=== PATIENT | male | born 1950 | race Caucasian/White ===

== ENCOUNTER → 2019-04-21 | Outpatient (CLI) | payer MEDICARE ==
[2019-04-21 16:49] LABS: African American GFR (CKD) >90 (>60 ml/min/1.73 sqM); Blood Urea Nitrogen 15 mg/dL (9-20)
--- NOTE | 2019-04-21 17:31 | CT ---
EXAMINATION TYPE: CT chest w con DATE OF EXAM: 04/21/2019 COMPARISON: None HISTORY: LL lobe atelectasis CT DLP: 588.50 mGycm Automated exposure control for dose reduction was used. CONTRAST: CT scan of the chest is performed with IV Contrast, patient injected with 100 mL of Isovue 300. FINDINGS: There is some patchy atelectasis at the lung bases. Heart size is normal. There are numerous enlarged mediastinal lymph nodes that measure up to 2 cm. There is an enlarged lymph node at the inferior lef t pulmonary hilum that measures 4.2 cm. There is 4.4 cm aneurysm of the ascending aorta. There is no evidence of dissection. There is no pleural effusion. There is 3 cm oval-shaped low-density focus pos terior right lobe of the liver that is probably a cyst. There is no adrenal mass. Thoracic spine is intact. There is no compression fracture. IMPRESSION: There is mediastinal and left bronchial adenopathy. Markedly enlarged left bronchial lym ph node. This could relate to lymphoma. Mild aneurysm of the ascending aorta. Mild atelectasis at both lung bases.
== END | disposition home or self-care (01) ==
LOC: RADCTMAIN 16:07
PROVIDERS: ATTEND Internal Medicine
DX: J98.11 Atelectasis (principal); R59.1 Generalized enlarged lymph nodes; I71.2 Thoracic aortic aneurysm, without rupture
CPT/HCPCS: 82565; 84520; 71260; 36415; Q9967

== ENCOUNTER 2019-04-29 12:08 | Inpatient (IN) | payer MEDICARE ==
[2019-04-29] MEDS ORDERED: SODIUM CHLORIDE 0.9% 1,000 ML IV STA (12:28)
[2019-04-29] MEDS ORDERED: NITROGLYCERIN SL TABS 0.4 MG TAB SUBLINGUAL PRN ×2 (12:28→13:56)
[2019-04-29] MEDS ORDERED: HEPARIN SODIUM,PORCINE 5,000 UNIT/ML 1 ML VIAL IV PRN (12:28)
[2019-04-29] MEDS ORDERED: HEPARIN SODIUM,PORCINE 5,000 UNIT/ML 1 ML VIAL IV ONE (12:28)
[2019-04-29] MEDS ORDERED: HEPARIN SOD,PORK IN 0.45% NACL 25,000 UNIT in 0.45% NACL 1 250ML.BAG IV SCH (12:30)
[2019-04-29] MEDS ORDERED: SODIUM CHLORIDE 0.9% 1,000 ML IV SCH ×2 (12:30→14:00)
[2019-04-29] MEDS ORDERED: ASPIRIN 81 MG PO STA (12:33)
[2019-04-29] MEDS ORDERED: fentaNYL (PF) 50 MCG/ML 2 ML AMP ONE (12:36)
[2019-04-29] MEDS ORDERED: VERAPAMIL 2.5 MG/ML 2 ML AMP ONE (12:36)
[2019-04-29] MEDS ORDERED: LIDOCAINE 1% INJ 10MG/ML (20 ML MDV) ONE (12:36)
--- NOTE | 2019-04-29 12:37 | ED ---
Chest Pain HPI - General Chief Complaint: Chest Pain Stated Complaint: Chest pain/cough Time Seen by Provider: 04/29/19 12:28 Source: patient, RN notes reviewed, old records reviewed Mode of arrival: wheelchair Limitations: no limitations - History of Present Illness Initial Comments: This is a 68-year-old male the ER for evaluation significant medical history. Patient has no recent change in medications recent change medical history episodic chest pain for a few days now significant worsening heaviness on his chest both sides left-sided right side. Patient also complaining of shortness of breath. He has no sharpness in his pain no pain is going to his back no feelings of syncope. No headaches. No neurological complaints. Patient has no significant history of heart disease, does not follow up with any significant family physician but has no history of high blood pressure high cholesterol diabetes MD Complaint: chest pain -: days(s) (But significantly worse over the last couple hours) Onset: during rest Pain Location: left chest, right chest Pain Radiation: none Severity: moderate Severity scale (1-10): 4 Quality: heaviness Consistency: constant Improves With: nothing Worsens With: nothing Anginal Symptoms: diaphoresis, dyspnea Other Symptoms: palpitations Treatments Prior to Arrival: none - Related Data Home Medications Medication Instructions Recorded Confirmed Aspirin EC [Ecotrin] 325 mg PO DAILY 04/29/19 04/29/19 Multivitamins, Thera [Multivitamin 1 tab PO DAILY 04/29/19 04/29/19 (formulary)] Allergies Allergy/AdvReac Type Severity Reaction Status Date / Time No Known Allergies Allergy Verified 04/29/19 13:16 Review of Systems ROS Statement: Those systems with pertinent positive or pertinent negative responses have been documented in the HPI. ROS Other: All systems not noted in ROS Statement are negative. EKG Findings - EKG Comments: EKG Findings:: EKG shows positive ST ST elevated [place], STEMI is inferior with ST elevation, she does have lateral reciprocal changes Past Medical History Past Medical History: No Reported History Past Surgical History: No Surgical Hx Reported Past Psychological History: No Psychological Hx Reported Smoking Status: Never smoker Past Alcohol Use History: None Reported Past Drug Use History: None Reported General Exam Limitations: no limitations General appearance: alert, in no apparent distress, anxious, in distress Head exam: Present: atraumatic, normocephalic, normal inspection Eye exam: Present: normal appearance, EOMI. Absent: scleral icterus, conjunctival injection, periorbital swelling ENT exam: Present: normal exam, mucous membranes moist Neck exam: Present: normal inspection. Absent: tenderness, meningismus, lymphadenopathy Respiratory exam: Present: normal lung sounds bilaterally. Absent: respiratory distress, wheezes, rales, rhonchi, stridor Cardiovascular Exam: Present: regular rate, normal rhythm, normal heart sounds. Absent: systolic murmur, diastolic murmur, rubs, gallop, clicks GI/Abdominal exam: Present: soft, normal bowel sounds. Absent: distended, tenderness, guarding, rebound, rigid Extremities exam: Present: normal inspection, full ROM, normal capillary refill. Absent: tenderness, pedal edema, joint swelling, calf tenderness Back exam: Present: normal inspection Neurological exam: Present: alert, oriented X3, CN II-XII intact Psychiatric exam: Present: normal affect, normal mood Skin exam: Present: warm, dry, intact, normal color. Absent: rash Course Vital Signs 04/29/19 04/29/19 12:29 12:35 Temperature 99.2 F Pulse Rate 72 68 Respiratory 20 16 Rate Blood Pressure 148/97 138/56 O2 Sat by Pulse 98 99 Oximetry - Reevaluation(s) Reevaluation #1: 04/29/19 12:34 Medical records reviewed Reevaluation #2: 04/29/19 12:34 Page on receive of EKG, Nondestructive Tester did see patient here in the ER - Consultations Consultation #1: Spoke with sound regarding admission, they're acceptable for admission spoke with Sound regarding admission Chest Pain MDM - MDM 68 male the ER for evaluation patient does say for evaluation of chest pain positive ST elevation AK. Patient be admitted for cardiac observation Critical Care Time Critical Care Time: Yes Total Critical Care Time: 31 Disposition Clinical Impression: ST elevation myocardial infarction (STEMI) Disposition: ADMITTED IP TO THIS HOSP Condition: Critical Is patient prescribed a controlled substance at d/c from ED?: No
[2019-04-29] MEDS ORDERED: IV FLUID CONTINUATION 900 ML IV ONE ×2 (12:45)
--- NOTE | 2019-04-29 12:45 | XR ---
EXAMINATION TYPE: XR chest 1V portable DATE OF EXAM: 04/29/2019 COMPARISON: CT dated 04/21/2019 HISTORY: Chest pain TECHNIQUE: Single frontal view of the chest is obtained. FINDINGS: Double density overlying the left ventricle is seen that relates to left peribronchial mas s or adenopathy on the prior CT. There is also mild prominence of the ascending thoracic aorta. There is no focal air space opacity, pleural effusion, or pneumothorax seen. The cardiac silhouette size is mildly enlarged. The osseous structures are intact. IMPRESSION: Retrocardiac double density relates to left peribronchial mass/adenopathy is seen on the CT dated 04/21/2019. Mild prominence of the ascending thoracic aorta relates to the known thoracic ao rtic aneurysm. No new acute pulmonary process.
[2019-04-29] MEDS ORDERED: fentaNYL (PF) 50 MCG/ML 2 ML AMP IV ONE (12:50)
[2019-04-29] MEDS ORDERED: LIDOCAINE 1% INJ 10MG/ML (20 ML MDV) SQ ONE (12:50)
[2019-04-29 12:51] LABS: Basophils # (A) 0.1 k/uL (0-0.2); Basophils % (A) 1 %; Eosinophils % (A) 0 %; HCT 45.6 % (39.0-53.0); HGB 15.1 gm/dL (13.0-17.5); Lymphocytes # (A) 0.5 k/uL (1.0-4.8); Lymphocytes % (A) 4 %; MCHC 33.2 g/dL (31.0-37.0); MCV 90.3 fL (80.0-100.0); Mean Platelet Volume 7.7; Monocytes # (A) 0.7 k/uL (0-1.0); Monocytes % (A) 6 %; Neutrophils # (A) 10.6 k/uL (1.3-7.7); Neutrophils % (A) 87 %; Platelet Count 242 k/uL (150-450); RBC 5.05 m/uL (4.30-5.90); RDW 14.7 % (11.5-15.5); WBC 12.1 k/uL (3.8-10.6)
[2019-04-29 12:54] LABS: ALT 49 U/L (21-72); AST 142 U/L (17-59); African American GFR (CKD) >90 (>60 ml/min/1.73 sqM); Albumin 4.1 g/dL (3.5-5.0); Alkaline Phosphatase 69 U/L (38-126); Anion Gap 11 mmol/L; Blood Urea Nitrogen 15 mg/dL (9-20); Calcium 9.9 mg/dL (8.4-10.2); Carbon Dioxide 24 mmol/L (22-30); Chloride 102 mmol/L (98-107); Glucose 176 mg/dL (74-99); Magnesium 2.1 mg/dL (1.6-2.3); Sodium 137 mmol/L (137-145); Total Bilirubin 1.2 mg/dL (0.2-1.3); Total Protein 7.9 g/dL (6.3-8.2)
[2019-04-29] MEDS ORDERED: VERAPAMIL SYRINGE (5 MG/10 ML) INTRAARTER ONE (12:54)
[2019-04-29] MEDS ORDERED: BIVALIRUDIN BOLUS 250 MG/50 ML IV ONE (12:57)
--- NOTE | 2019-04-29 12:57 | P.CRDCN ---
History of Present Illness Consult date: 04/29/19 Reason for Consult (text): Inferior STEMI Chief complaint: Chest pain History of present illness: This is a 68-year-old gentleman with no prior documented history of hypertension, no diabetes, no hyperlipidemia, he is a nonsmoker, no family history of premature coronary artery disease, presented to the emergency room with symptoms of midsternal chest pressure and heaviness with associated shortness of breath. According to the patient, he's been having a heartburn sensation in the center of his chest which has been occurring off and on for the past one and a half to 2 weeks. He's been getting intermittent shortness of breath with this. He states that he did see Dr. Dumas of the lung doctor as an outpatient, had a chest x-ray performed which showed evidence of some nodules and he was to be scheduled for a PET scan down the road. This morning patient developed significant heaviness in the chest and found it very difficult to breathe which is why he came into the ER for further evaluation and treatment. His initial EKG in the emergency room showed a normal sinus rhythm with inferior ST elevation and mild ST elevation noted in the lateral leads. Chest x-ray was performed in the emergency room, resolved is yet pending. Blood pressure in the ER 148/90, heart rate in the 70s, 98% on 2 L of oxygen, temperature 99.2. No lab data yet available. At the time of my examination in the emergency room, patient was rating his chest pressure at about a 2, he did complain of still feeling quite short of breath, denied any dizziness or lightheadedness. The patient was advised to go emergently to the cardiac catheterization lab to undergo cardiac catheterization, the risks and the benefits were explained to the patient in detail and he was willing to proceed. This will be performed by Dr. Cantor. Past Medical History Past Medical History: No Reported History Past Surgical History: No Surgical Hx Reported Past Psychological History: No Psychological Hx Reported Smoking Status: Never smoker Past Alcohol Use History: None Reported Past Drug Use History: None Reported Medications and Allergies Allergies Allergy/AdvReac Type Severity Reaction Status Date / Time No Known Allergies Allergy Verified 04/29/19 12:32 Physical Exam Vitals: Vital Signs Temp Pulse Resp BP Pulse Ox 04/29/19 12:29 99.2 F 72 20 148/97 98 Intake and Output 04/28/19 04/29/19 04/29/19 22:59 06:59 14:59 Other: Weight 97.069 kg PHYSICAL EXAMINATION: GENERAL: 78-year-old gentleman in no acute distress at the time of my examination HEENT: Head is atraumatic, normocephalic. Pupils equal, round. Sclera anicteric. Conjunctiva are clear. Mucous membranes of the mouth are moist. Neck is supple. There is elevated jugular venous pressure. No carotid bruit is heard. HEART EXAMINATION: Heart S1, S2 normal. No murmur or gallop heard. CHEST EXAMINATION: Lungs are clear to auscultation and precussion. No chest wall tenderness is noted on palpation or with deep breathing. ABDOMEN: Soft, nontender. Bowel sounds are heard. No organomegaly noted. EXTREMITIES: 2+ peripheral pulses with no evidence of peripheral edema and no calf tenderness noted. NEUROLOGIC patient is awake, alert and oriented 3. . Results Current Medications Generic Name Dose Route Start Last Admin Trade Name Freq PRN Reason Stop Dose Admin Aspirin 325 mg 04/30/19 09:00 Aspirin PO DAILY [facility] Atorvastatin Calcium 80 mg 04/30/19 09:00 Lipitor PO DAILY VANDANA Heparin Sodium (Porcine) 0 unit 04/29/19 12:28 Heparin IV Q6HR PRN Low PTT Protocol Sodium Chloride 1,000 mls @ 100 mls/hr 04/29/19 12:28 04/29/19 12:35 Saline 0.9% IV 04/29/19 22:27 100 mls/hr .Q10H STA Administration Sodium Chloride 1,000 mls @ 20 mls/hr 04/29/19 12:30 04/29/19 12:35 Saline 0.9% IV 20 mls/hr .Q24H VANDANA Administration Heparin Sodium/Sodium Chloride 250 mls @ 9.994 mls/hr 04/29/19 12:30 25,000 unit/ Sodium Chloride IV .Q24H VANDANA Protocol 4.67 UNITS/KG/HR Metoprolol Tartrate 25 mg 04/29/19 21:00 Lopressor PO BID VANDANA Nitroglycerin 0.4 mg 04/29/19 12:28 Nitrostat SUBLINGUAL Q5M PRN Chest Pain Intake and Output 04/28/19 04/29/19 04/29/19 22:59 06:59 14:59 Other: Weight 97.069 kg Patient Weight 04/30/19 06:59 Weight 97.069 kg EKG Interpretations (text) EKG shows a normal sinus rhythm with ST elevation in the inferior leads and mild elevation noted in the lateral leads Assessment and Plan Plan: Assessment and plan #[address] elevation myocardial infarction #2 pulmonary nodules for which the patient has seen a emblem drawer in as an outpatient and was scheduled to have a PET scan down the road. #3 cardiac risk factors negative for hypertension, no diabetes, no hyperlipidemia, nonsmoker, no family history of premature coronary artery disease Plan Patient was given a full aspirin as well as Lipitor 80, 4000 of heparin, taken emergently to the cardiac catheterization lab. The risks and benefits of the procedure were explained to the patient in detail and he was willing to proceed. Further recommendations to follow. DNP note has been reviewed, I agree with a documented findings and plan of care. Patient was seen and examined.
[2019-04-29 12:58] LABS: INR 1.1 (<1.2); Prothrombin Time 11.3 sec (9.0-12.0)
[2019-04-29] MEDS ORDERED: BIVALIRUDIN 250 MG in SODIUM CHLORIDE 0.9% 50 ML IV ONE (12:58)
[2019-04-29] MEDS ORDERED: TICAGRELOR 90 MG TAB ONE (12:58)
[2019-04-29] MEDS ORDERED: TICAGRELOR 90 MG TAB PO ONE (13:02)
[2019-04-29] MEDS ORDERED: NITROGLYCERIN 1000MCG/10ML SYRINGE INTRACORON ONE (13:15)
[2019-04-29] MEDS ORDERED: IOPAMIDOL-370 125ML BTL INJ ONE ×2 (13:24→13:46)
[2019-04-29] MEDS ORDERED: MAG HYDROX/AL HYDROX/SIMETH 30 ML CUP PO PRN (13:56)
[2019-04-29] MEDS ORDERED: ATROPINE SULFATE 0.1 MG/ML 10ML SYRINGE IV PRN (13:56)
[2019-04-29] MEDS ORDERED: ZOLPIDEM 5 MG TAB PO PRN (13:56)
[2019-04-29] MEDS ORDERED: RX INFO: IV CONTRAST WAS GIVEN 1 EACH MISC MISCELLANE PRN (13:56)
--- NOTE | 2019-04-29 14:27 | CC ---
CARDIAC CATHETERIZATION REPORT Mr. Hines is a 68-year-old male with no prior documented coronary artery disease who has been complaining of chest discomfort on and off for the last week. Today, the pain was worse. He came into the emergency room, was found to have ST elevation inferiorly. In view of that, recommendation regarding cardiac catheterization. The procedures, risks and complication were discussed with the patient who is in full understanding and agreement. PROCEDURE: Patient was brought to cath laboratory technician after receiving sedation and achieving moderate conscious sedated state using Benadryl and fentanyl, using Xylocaine anesthesia and Seldinger technique, a 6-Montenegrin sheath was introduced in the right radial artery. Right coronary angiography was performed using a 6-Montenegrin FR4 guiding catheter after performing angioplasty and stenting of the RCA. A 5-Montenegrin 3.5 bend left Jason catheter were used to cannulate the left main and images of the left coronary system was obtained. Following that, a 5-Montenegrin tight pigtail catheter was introduced into the left ventricle and pressures were calculated. Following that, catheter and sheath were removed. Hemostasis was obtained with deployment of a TR band. There was no immediate complication. Patient is returned to his room in stable condition. Of note, the patient received intra-arterial verapamil. 1. LEFT MAIN: This is a large-sized vessel trifurcating into left circumflex, left anterior descending artery. Left main coronary artery distally has a 30%-40% stenosis at the bifurcation. The distal vessel has no high-grade stenosis. 2. LEFT ANTERIOR DESCENDING ARTERY: This is a large-sized vessel, tapers down to distal third, giving rise to a large diagonal branch. The left anterior descending artery has intimal disease of 20% to 30% throughout its course without any evidence of high-grade stenosis. 3. RAMUS INTERMEDIUS: This is a small size vessel that has no evidence of high-grade stenosis. 4. LEFT CIRCUMFLEX: This is a nondominant vessel, giving rise to 2 small obtuse marginal branches. The left circumflex has mild intimal disease of 20% to 30% without any evidence of high-grade stenosis. 5. RIGHT CORONARY ARTERY: This vessel is totally occluded proximally with no antegrade flow. 6. LEFT VENTRICULOGRAM: Left ventriculogram was not performed. HEMODYNAMICS: There was no gradient across the aortic valve. The left ventricular end-diastolic pressure was 14-16 mmHg. CONCLUSION: 1. Acutely occluded proximal right coronary artery. 2. Mild to moderate disease in the distal left main as well as LAD and left circumflex. RECOMMENDATION: In view of finding anatomy, I recommend proceeding with angioplasty and stenting of the right coronary artery. The procedures, risks and complications were discussed with the patient who is in full understanding and agreement. MMOSWALDOL / IJN: [id number] /
--- NOTE | 2019-04-29 14:38 | PTCA ---
PERCUTANEOUSTRANS CORORONARY ANGIOGRAPHY Mr. Hines is a 68-year-old male with no prior documented coronary artery disease who presented with an acute inferior myocardial infarction, underwent cardiac catheterization, was found to have an acutely occluded proximal right coronary artery. In view of that, recommendation regarding angioplasty and stenting. The procedures, risks and complication were discussed with the patient who is in full understanding and agreement. PROCEDURE: Using the 6-Namibian FR4 guiding catheter and after cannulating the right coronary ostium, attempt to advance a 0.014 balanced medium weight J-wire was advanced across the total occlusion were unsuccessful. Subsequently, a corsair catheter was advanced and attempt to advance the BMW wire were unsuccessful. That wire was removed and a Whisper J-wire was advanced and positioned distally. Following that, the corsair catheter was removed and attempt to advance a 2.5 x 12 mm Trek balloon were unsuccessful. That balloon was removed and a 1.5 x 8 mm Trek balloon was advanced and multiple inflations at a maximum of 10 atmospheres were done. Following that the balloon was removed and a 2.5 x 12 mm Trek balloon was readvanced and multiple inflations maximum of 10 atmospheres were done. Following that, the balloon was removed and a 4.0 x 18 mm Xience [place] stent was advanced, deployed and post dilated at 16 atmospheres. Following that, the balloon was removed and a 5.0 x 15 mm Trek balloon was advanced and one inflation at 10 atmospheres was done. After the last inflation, after appropriate wait, the balloon and the guidewire were withdrawn back in the guiding catheter. The images were obtained and repeated. Those images reveal stable successful stenting. Following the catheter, the wire and the balloon were removed. Angiography of the left coronary system as well as left ventricular end- diastolic pressure were calculated. Following that, catheter and sheaths were removed. Hemostasis was obtained with deployment of a TR band. There was no immediate complication. Patient is returned to his room in stable condition. Of note, the patient was pain-free at the end the procedure. He received Angiomax per protocol as well as oral loading dose of Brilinta. RESULTS: Successful stenting of a large proximal right coronary artery with reduction of stenosis from 100% to less than 5%. The patient has intimal disease involving the mid and distal right coronary artery as well as the right PDA. RECOMMENDATION: Patient will be continued on aspirin, Brilinta, beta blockers and statin. The importance of dual antiplatelet treatment were discussed with the patient and his family who are in full understanding and agreement. Duration of the procedure is 54 minutes. MMOSWALDOL / IJN: [id number] /
--- NOTE | 2019-04-29 16:29 | P.HPIM ---
History of Present Illness H&P Date: 04/29/19 The patient is a 68 yo M with no significant PMH, and non-smoker presented to the ED for on-going chest discomfort and SOB. The patient reports that over the past 2-3 weeks, he had persistent "heart-burn like" bilateral chest discomfort with occasional radiation to both arms. The discomfort was constant, worsened with exertion, with associated shortness of breath. The patient endorsed occasional nausea and diaphoresis, without vomiting or loss of consciousness. The patient was evaluated by his PCP who ordered a CT chest which revealed mediastinal and L bronchial adenphaty w/ markedly enlarged L bronchial lymph nodes, suspicious for lymphoma. The patient was subsequently scheduled for a PET scan. The patient's SOB however persisted and he went back to his PCP's (Dr Mora) office, at which time he was advised to come to the ED. In the ED, the patient's EKG was noted to have sinus rhythm with ST elevations in the inferior leads along with some mild ST elevation in the lateral leads. Laboratory evaluation revealed a troponin level of 9.640, and a BNP of 1840. A code STEMI was activated and the patient was taken to the OR for cardiac catheterization which was performed by Dr. Cantor, revealing an acutely occluded proximal RCA with mild to moderate disease of the distal left main as well as LAD and left circumflex. The patient underwent angioplasty with stenting of the RCA. The patient was seen postoperatively in the medical ICU. Patient was in good spirits and noted that his chest pain and shortness of breath have resolved since the angioplasty. He denied fever, chills, nausea, vomiting, diaphoresis, or dizziness. Also denied cough, or diarrhea. Review of Systems Pertinent positives and negatives as discussed in HPI, a complete review of systems was performed and all other systems are negative. Past Medical History Past Medical History: No Reported History History of Any Multi-Drug Resistant Organisms: None Reported Past Surgical History: No Surgical Hx Reported Additional Past Surgical History / Comment(s): Right knee surgery. Past Psychological History: No Psychological Hx Reported Smoking Status: Never smoker Past Alcohol Use History: None Reported Past Drug Use History: None Reported Medications and Allergies Home Medications Medication Instructions Recorded Confirmed Type Aspirin EC [Ecotrin] 325 mg PO DAILY 04/29/19 04/29/19 History Multivitamins, Thera [Multivitamin 1 tab PO DAILY 04/29/19 04/29/19 History (formulary)] Allergies Allergy/AdvReac Type Severity Reaction Status Date / Time No Known Allergies Allergy Verified 04/29/19 13:16 Physical Exam Vitals: Vital Signs Temp Pulse Resp BP BP Pulse Ox 04/29/19 16:00 98.6 F 64 12 121/84 95 04/29/19 15:00 61 22 109/76 95 04/29/19 14:15 60 18 120/79 95 04/29/19 13:56 98.6 F 18 120/79 93 L 04/29/19 12:35 68 16 138/56 99 04/29/19 12:29 99.2 F 72 20 148/97 98 Intake and Output 04/29/19 04/29/19 04/29/19 06:59 14:59 22:59 Intake Total 390 200 Output Total 250 Balance 390 -50 Intake: IV 390 200 Sodium Chloride 0.9% 1, 100 200 000 ml @ 100 mls/hr IV . Q10H [facility] Rx#:[id number] Output: Urine 250 Other: Voiding Method Urinal Weight 97.069 kg General: non toxic, no distress, appears at stated age, obese Derm: no unusual rashes/lesions no unusual ecchymoses, warm, dry Head: atraumatic, normocephalic, symmetric Eyes: EOMI, no lid lag, anicteric sclera, pupils equal round reactive to light ENT: Nose and ears atraumatic, no thrush, no pharyngeal erythema Neck: No thyromegaly, no cervical lymphadenopathy, trachea midline, supple Mouth: no lip lesion, mucus membranes moist Cardiovascular: S1S2 reg, no murmur, positive posterior tibial pulse bilateral, no edema, capillary refill less than 2 seconds Lungs: CTA bilateral, no rhonchi, no rales , no accessory muscle use Abdominal: soft, nontender to palpation, no guarding, no appreciable organom egaly, normal bowel sounds Ext: no gross muscle atrophy, muscle strength 5 out of 5 in all 4 extremities grossly, no contractures Neuro: CN II-XI grossly intact, light touch intact all 4 extremities, finger to nose within normal limits Psych: Alert, oriented, appropriate affect Results CBC & Chem 7: 04/29/19 12:30 04/29/19 12:30 Labs: Abnormal Lab Results - Last 24 Hours (Table) 04/29/19 04/29/19 04/29/19 Range/Units 12:30 12:30 12:30 WBC 12.1 H (3.8-10.6) k/uL Neutrophils # 10.6 H (1.3-7.7) k/uL Lymphocytes # 0.5 L (1.0-4.8) k/uL Glucose 176 H (74-99) mg/dL AST 142 H (17-59) U/L Troponin I 9.640 H* (0.000-0.034) ng/mL Thrombosis Risk Factor Assmnt - Choose All That Apply Any of the Below Risk Factors Present?: Yes Each Factor Represents 1 point: Acute [place] Other Risk Factors: No Other congenital or acquired thrombophilia - If yes, enter type in comment: No Thrombosis Risk Factor Assessment Total Risk Factor Score: 1 Thrombosis Risk Factor Assessment Level: Low Risk Assessment and Plan Plan: Inferior wall STEMI s/p PCI x 1 to RCA -Cardiology on board -C/w Aspirin, Lipitor, Brilinta -C/w Lopressor -F/u A1C and Lipid panel -Cardiac monitoring -Supplemental oxygen -F/u Echo Mediastinal and L bronchial adenopathy, possible lymphoma -Scheduled for outpatient PET scan -Following w/ PCP DVT prophylaxis -Heparin subq Discussed with: Patient, brother Anticipated discharge date: 05/[address]: Home A total of 45 minutes was spent on the care of this complex patient more than 50% of the time was spent in counseling and care coordination.
[2019-04-29] MEDS: METOPROLOL TARTRATE 25 MG TAB PO SCH (21:02)
[2019-04-29] MEDS: ATORVASTATIN 80 MG TAB PO SCH (21:02)
[2019-04-30] MEDS: HEPARIN SODIUM,PORCINE 5,000 UNIT/ML 1 ML VIAL SQ SCH ×3 (00:04→15:48)
[2019-04-30 05:39] LABS: African American GFR (CKD) >90 (>60 ml/min/1.73 sqM); Anion Gap 4 mmol/L; Blood Urea Nitrogen 14 mg/dL (9-20); Calcium 8.6 mg/dL (8.4-10.2); Carbon Dioxide 26 mmol/L (22-30); Chloride 106 mmol/L (98-107); Cholesterol 144 mg/dL (<200); Glucose 143 mg/dL (74-99); HDL Cholesterol 32 mg/dL (40-60); LDL Cholesterol,Calculated 98 mg/dL (0-99); Potassium 3.7 mmol/L (3.5-5.1); Sodium 136 mmol/L (137-145); Triglycerides 69 mg/dL (<150)
[2019-04-30 06:59] LABS: Basophils % (A) 0 %; Eosinophils % (A) 0 %; HCT 37.3 % (39.0-53.0); HGB 12.5 gm/dL (13.0-17.5); Lymphocytes # (A) 0.4 k/uL (1.0-4.8); Lymphocytes % (A) 4 %; MCH 29.9 pg (25.0-35.0); MCHC 33.6 g/dL (31.0-37.0); MCV 89.1 fL (80.0-100.0); Mean Platelet Volume 7.1; Monocytes # (A) 0.5 k/uL (0-1.0); Monocytes % (A) 6 %; Neutrophils # (A) 8.4 k/uL (1.3-7.7); Neutrophils % (A) 88 %; Platelet Count 202 k/uL (150-450); RBC 4.19 m/uL (4.30-5.90); RDW 14.7 % (11.5-15.5); WBC 9.5 k/uL (3.8-10.6)
[2019-04-30] MEDS ORDERED: POTASSIUM CHLORIDE ER 20 MEQ TAB.ER PO SCH (07:00)
[2019-04-30] MEDS: ASPIRIN 81 MG PO SCH (08:07)
[2019-04-30] MEDS: TICAGRELOR 90 MG TAB PO SCH ×2 (08:07→22:07)
[2019-04-30] MEDS: METOPROLOL TARTRATE 25 MG TAB PO SCH ×2 (08:07→22:06)
[2019-04-30] MEDS: LISINOPRIL 2.5 MG TAB PO SCH (08:07)
[2019-04-30] MEDS ORDERED: ATORVASTATIN 80 MG TAB PO SCH (09:00)
[2019-04-30] MEDS ORDERED: ASPIRIN 325 MG TAB PO SCH (09:00)
[2019-04-30 10:05] VITALS: BMI 31.1
--- NOTE | 2019-04-30 11:10 | PN ---
PROGRESS NOTE Mr. Hines came in with acute inferior MT yesterday and was seen by Dr. Cantor since I was in another procedure. He had a stenting of RCA performed with a good result. He is doing well today, has no chest pains. He is a melton, quite active. There is also some pulmonary nodules and he was in the process of getting worked up for a PET scan. Vitals are stable, S1-S2 heard normally. Short systolic murmur noted. Lungs are clear. Abdomen and lower extremity exam unchanged. Plan is to increase activity, supplement potassium. Check a CBC and move him to telemetry today. He has mild to moderate left main disease and also LAD disease, but no other critical lesions were noted. RCA has been opened up. Echocardiogram will be performed today. Plan is to continue current medications, increase activity and move him to telemetry. MMODL / IJN: [id number] /
--- NOTE | 2019-04-30 12:31 | ECHOF ---
Referral Reason:mi MEASUREMENTS -------- HEIGHT: 152.4 cm WEIGHT: 97.1 kg BP: 130/60 RVIDd: 3.3 cm (< 3.3) IVSd: 1.4 cm (0.6 - 1.1) LVIDd: 4.7 cm (3.9 - 5.3) LVPWd: 1.6 cm (0.6 - 1.1) IVSs: 1.6 cm LVIDs: 4.3 cm LVPWs: 1.2 cm LA Diam: 3.5 cm (2.7 - 3.8) LAESV Index (A-L): 27.54 ml/m Ao Diam: 3.5 cm (2.0 - 3.7) AV Cusp: 2.0 cm (1.5 - 2.6) LA Diam: 3.5 cm (2.7 - 3.8) MV EXCURSION: 20.130 mm (> 18.000) MV EF SLOPE: 86 mm/s (70 - 150) EPSS: 0.9 cm MV E Silvestre: 0.49 m/s MV DecT: 193 ms MV A Silvestre: 0.67 m/s MV E/A Ratio: 0.73 TAPSE: 21.69 mm FINDINGS -------- Sinus rhythm. This was a technically adequate study. The left ventricular size is normal. There is mild concentric left ventricular hypertrophy. Overa ll left ventricular systolic function is mildly impaired with, an EF between 45 - 50 %. The diastol ic filling pattern is normal for the age of the patient 9.39. Inferior Hypokinesis The right ventricle is normal in size. The left atrial size is normal. The right atrial size is normal. 5.0mg OF Lumason UTLIZED: 2 OR MORE WALL SEGMENTS NOT VISUALIZED. There is mild aortic regurgitation. Mild mitral annular calcification present. Mild mitral regurgitation is present. Mild tricuspid regurgitation present. Right ventricular systolic pressure is normal at < 35 mmHg. There is no evidence of pulmonary hypertension. The pulmonic valve was not well visualized. Ascending Aortic is dilated and measures 4.1cm. There is no pericardial effusion. CONCLUSIONS -------- 1. Sinus rhythm. 2. This was a technically adequate study. 3. The left ventricular size is normal. 4. There is mild concentric left ventricular hypertrophy. 5. Overall left ventricular systolic function is mildly impaired with, an EF between 45 - 50 %. 6. The diastolic filling pattern is normal for the age of the patient 9.39 7. Inferior Hypokinesis 8. The right ventricle is normal in size. 9. The left atrial size is normal. 10. The right atrial size is normal. 11. 5.0mg OF Lumason UTLIZED: 2 OR MORE WALL SEGMENTS NOT VISUALIZED. 12. There is mild aortic regurgitation. 13. Mild mitral annular calcification present. 14. Mild mitral regurgitation is present. 15. Mild tricuspid regurgitation present. 16. Right ventricular systolic pressure is normal at < 35 mmHg. 17. There is no evidence of pulmonary hypertension. 18. The pulmonic valve was not well visualized. 19. Ascending Aortic is dilated and measures 4.1cm. 20. There is no pericardial effusion. POLICE GUARD: Oralia Camarillo RDCS
--- NOTE | 2019-04-30 16:11 | P.PN ---
Subjective Progress Note Date: 04/30/19 The patient is a 68 yo M with no significant PMH, and non-smoker presented to the ED for on-going chest discomfort and SOB. The patient reports that over the past 2-3 weeks, he had persistent "heart-burn like" bilateral chest discomfort with occasional radiation to both arms. The discomfort was constant, worsened with exertion, with associated shortness of breath. The patient endorsed occasional nausea and diaphoresis, without vomiting or loss of consciousness. The patient was evaluated by his PCP who ordered a CT chest which revealed mediastinal and L bronchial adenphaty w/ markedly enlarged L bronchial lymph nodes, suspicious for lymphoma. The patient was subsequently scheduled for a PET scan. The patient's SOB however persisted and he went back to his PCP's (Dr Mora) office, at which time he was advised to come to the ED. In the ED, the patient's EKG was noted to have sinus rhythm with ST elevations in the inferior leads along with some mild ST elevation in the lateral leads. Laboratory evaluation revealed a troponin level of 9.640, and a BNP of 1840. A code STEMI was activated and the patient was taken to the OR for cardiac catheterization which was performed by Dr. Cantor, revealing an acutely occluded proximal RCA with mild to moderate disease of the distal left main as well as LAD and left circumflex. The patient underwent angioplasty with stenting of the RCA. The patient was seen in the MICU on 04/30. He reports no further chest pain, or SOB. Denied nausea, vomiting, diaphoresis, fever, chills, or cough. Objective - Vital Signs Vital signs: Vital Signs Temp 98.5 F 04/30/19 12:00 Pulse 102 H 04/30/19 15:00 Resp 22 04/30/19 15:00 BP 114/79 04/30/19 15:00 Pulse Ox 93 L 04/30/19 15:00 Intake & Output 04/29/19 04/30/19 04/30/19 18:59 06:59 18:59 Intake Total 790 600 650 Output Total 250 825 600 Balance 540 -225 50 Weight 97.069 kg 98.4 kg 98.4 kg Intake: IV 790 400 Sodium Chloride 0.9% 1, 500 400 000 ml @ 100 mls/hr IV . Q10H [facility] Rx#:[id number] Intake, IV Titration 200 Amount Sodium Chloride 0.9% 1, 200 000 ml @ 100 mls/hr IV . Q10H [facility] Rx#:[id number] Oral 650 Output: Urine 250 825 600 Other: Voiding Method Urinal Urinal Urinal - Exam General: Non-toxic, in no acute distress, appears stated age, obese HEENT: NC/AT, anicteric sclerae, moist conjunctiva, no lid-lag, PERRLA Cardiovascular: S1/S2 wnl, no murmurs, rubs, or gallops Lungs: Clear to auscultation, normal respiratory effort, no accessory muscle use Abdominal: Soft, non-tender, non-distended, no guarding, rebound, or rigidity Skin: Warm, dry Extremities: No edema or contractures Psychiatric: Alert and oriented to person, place and time, appropriate affect Neuro: CN II-XII grossly intact, Strength 5/5 in all 4 extremities, Speech intact, Sensation to light touch grossly intact throughout - Labs CBC & Chem 7: 04/30/19 04:44 04/30/19 04:41 Labs: Abnormal Lab Results - Last 24 Hours (Table) 04/29/19 04/29/19 04/30/19 Range/Units 18:09 18:09 00:41 RBC (4.30-5.90) m/uL Hgb (13.0-17.5) gm/dL Hct (39.0-53.0) % Neutrophils # (1.3-7.7) k/uL Lymphocytes # (1.0-4.8) k/uL APTT 31.2 H (22.0-30.0) sec Sodium (137-145) mmol/L Glucose (74-99) mg/dL Troponin I 126.000 H* 54.000 H* (0.000-0.034) ng/mL HDL Cholesterol (40-60) mg/dL 04/30/19 04/30/19 Range/Units 04:41 04:44 RBC 4.19 L (4.30-5.90) m/uL Hgb 12.5 L (13.0-17.5) gm/dL Hct 37.3 L (39.0-53.0) % Neutrophils # 8.4 H (1.3-7.7) k/uL Lymphocytes # 0.4 L (1.0-4.8) k/uL APTT (22.0-30.0) sec Sodium 136 L (137-145) mmol/L Glucose 143 H (74-99) mg/dL Troponin I (0.000-0.034) ng/mL HDL Cholesterol 32 L (40-60) mg/dL Assessment and Plan Plan: Inferior wall STEMI s/p PCI x 1 to RCA -Cardiology -C/w Aspirin, Lipitor, Brilinta -C/w Lopressor -Lipid panel reviewed -F/u A1C -Cardiac monitoring -Supplemental oxygen -Echocardiogram reviewed Mediastinal and L bronchial adenopathy, possible lymphoma -Scheduled for outpatient PET scan -Following w/ PCP DVT prophylaxis -Heparin subq Discussed with: Patient, brother Anticipated discharge date: 05/[address]: Home A total of 30 minutes was spent on the care of this complex patient more than 50% of the time was spent in counseling and care coordination.
[2019-04-30] MEDS: ATORVASTATIN 80 MG TAB PO SCH (22:06)
[2019-05-01] MEDS: HEPARIN SODIUM,PORCINE 5,000 UNIT/ML 1 ML VIAL SQ SCH ×2 (01:08→08:08)
[2019-05-01 05:40] LABS: Mean Platelet Volume 6.8; Platelet Count 207 k/uL (150-450)
[2019-05-01] MEDS: TICAGRELOR 90 MG TAB PO SCH (08:08)
[2019-05-01] MEDS: METOPROLOL TARTRATE 25 MG TAB PO SCH (08:08)
[2019-05-01] MEDS: LISINOPRIL 2.5 MG TAB PO SCH (08:08)
[2019-05-01] MEDS: ASPIRIN 81 MG PO SCH (08:09)
--- NOTE | 2019-05-01 08:20 | PN ---
PROGRESS NOTE Mr. Hines suffered from inferior PA. Dr. Cantor performed PCI of RCA. He is doing better. Ejection fraction is in the 40% to 45% range. Vitals are stable. No JVD. S1, S2 heard normally. Lungs are clear. Abdomen and lower extremity exam unchanged. Patient can be discharged later on today. He is scheduled to have a PET scan tomorrow and further workup for his lung condition. He has moderate disease in left main and LAD. He has already got up, walked around, has no further symptoms. I reviewed his medications. We will continue the same medications and he can be discharged and he will see Dr. Cantor in one week. Vitals are stable. No JVD. S1,S2 heard normally. Lungs revealed decent air entry. Abdomen is soft, nontender. Lower extremities reveal diminished pulses. Central system is normal. Right radial cath site is clean and dry. MMODL / IJN: [id number] /
--- NOTE | 2019-05-01 09:32 | P.DS ---
Providers Date of admission: 04/29/19 12:37 Expected date of discharge: 05/01/19 Attending physician: Keturah Erickson, DO Consults: 04/29/19 12:28 Consult Physician Urgent Consulting Provider: Agustina Cantor Consult Reason/Comments: stemi Do you want consulting provider notified?: Yes 04/29/19 13:56 Consult Physician Routine Consulting Provider: [facility] Consult Reason/Comments: Post Interventional patient Do you want consulting provider notified?: Already Contacted Primary care physician: [facility] Course: The patient is a 68 yo M with no significant PMH, and non-smoker presented to the ED for on-going chest discomfort and SOB. The patient reported that over the previous 2-3 weeks, he had persistent "heart-burn like" bilateral chest disc omfort with occasional radiation to both arms. The discomfort was constant, worsened with exertion, with associated shortness of breath. The patient endorsed occasional nausea and diaphoresis, without vomiting or loss of consciousness. The patient was evaluated by his PCP who ordered a CT chest which revealed mediastinal and L bronchial adenphaty w/ markedly enlarged L bronchial lymph nodes, suspicious for lymphoma. The patient was subsequently scheduled for a PET scan. The patient's SOB however persisted and he went back to his PCP's (Dr Mora) office, at which time he was advised to come to the ED. In the ED, the patient's EKG was noted to have sinus rhythm with ST elevations in the inferior leads along with some mild ST elevation in the lateral leads. Laboratory evaluation revealed a troponin level of 9.640, and a BNP of 1840. A code STEMI was activated and the patient was taken to the OR for cardiac catheterization which was performed by Dr. Cantor, revealing an acutely occluded proximal RCA with mild to moderate disease of the distal left main as well as LAD and left circumflex. The patient underwent angioplasty with stenting of the RCA. The patient was placed on optimal medical therapy s/p STEMI. He was seen and examined at the bedside on the day of discharge. He reported feeling well and denied chest pain or SOB. Also denied nausea, vomiting, diarphoresis, or dizziness. Denied fever, chills, or cough. Discussed with the patient the importance of compliance with all his medications. Stressed the importance of follow-up with cardiology. Also advised the patient that if his chest pain recurs or he develops SOB, dizziness, nausea, vomiting, or diaphoresis, he should return to the ED immediately. Physical Examination General: Non-toxic, in no acute distress, appears stated age, normal weight HEENT: NC/AT, anicteric sclerae, moist conjunctiva, no lid-lag, PERRLA Cardiovascular: S1/S2 wnl, no murmurs, rubs, or gallops Lungs: Clear to auscultation, normal respiratory effort, no accessory muscle use Abdominal: Soft, non-tender, non-distended, no guarding, rebound, or rigidity Skin: Warm, dry Extremities: No edema or contractures Psychiatric: Alert and oriented to person, place and time, appropriate affect Neuro: CN II-XII grossly intact, Strength 5/5 in all 4 extremities, Speech intact, Sensation to light touch grossly intact throughout Discharge diagnosis: Inferior wall ST elevation MA status post PCI 1 to RCA; mediastinal and left bronchial adenopathy, scheduled for PET scan for tomorrow A total of 35 minutes of time were spent preparing this complex discharge summary. Patient Condition at Discharge: Stable Plan - Discharge Summary Discharge Rx Participant: Yes New Discharge Prescriptions: New Ticagrelor [Brilinta] 90 mg PO BID #60 tab Aspirin [Adult Low Dose Aspirin EC] 81 mg PO DAILY #30 tablet. Atorvastatin [Lipitor] 80 mg PO HS #30 tab Metoprolol Tartrate [Lopressor] 25 mg PO BID #60 tab Lisinopril [Zestril] 2.5 mg PO DAILY #30 tab Continue Multivitamins, Thera [Multivitamin (formulary)] 1 tab PO DAILY Discontinued Aspirin EC [Ecotrin] 325 mg PO DAILY Discharge Medication List Multivitamins, Thera [Multivitamin (formulary)] 1 tab PO DAILY 04/29/19 [History] Ticagrelor [Brilinta] 90 mg PO BID #60 tab 04/30/19 [Rx] Aspirin [Adult Low Dose Aspirin EC] 81 mg PO DAILY #30 tablet. 05/01/19 [Rx] Atorvastatin [Lipitor] 80 mg PO HS #30 tab 05/01/19 [Rx] Lisinopril [Zestril] 2.5 mg PO DAILY #30 tab 05/01/19 [Rx] Metoprolol Tartrate [Lopressor] 25 mg PO BID #60 tab 05/01/19 [Rx] Follow up Appointment(s)/Referral(s): Richi Mora MD [Primary Care Provider] - 1-2 days Agustina Cantor MD [STAFF PHYSICIAN] - 1 Week Patient Instructions/Handouts: Chest Pain (ED) Discharge Disposition: HOME SELF-CARE
[2019-05-01 13:10] VITALS: BP 102/69; PULSE 73; RESP 24; TEMP 98.5
== END 2019-05-01 16:17 | disposition home or self-care (01) | DRG 247 ==
LOC: EC 12:08 → 2SICU 12:37
PROVIDERS: ADMIT Internal Medicine; ATTEND Internal Medicine
PROC: B2111ZZ Fluoroscopy of Multiple Coronary Arteries using Low Osmolar Contrast (ICD-10-PCS; 2019-04-29)
PROC: 027034Z Dilation of Coronary Artery, One Artery with Drug-eluting Intraluminal Device, Percutaneous Approach (ICD-10-PCS; principal; 2019-04-29 12:40)
PROC: 4A023N7 Measurement of Cardiac Sampling and Pressure, Left Heart, Percutaneous Approach (ICD-10-PCS; 2019-04-29 12:40)
DX: I21.19 ST elevation (STEMI) myocardial infarction involving other coronary artery of inferior wall (principal); I25.10 Atherosclerotic heart disease of native coronary artery without angina pectoris; D72.829 Elevated white blood cell count, unspecified; R01.1 Cardiac murmur, unspecified; R59.9 Enlarged lymph nodes, unspecified; R91.8 Other nonspecific abnormal finding of lung field; Z79.82 Long term (current) use of aspirin
CPT/HCPCS: 71045; 80048; 80053; 80061; 83690; 83735; 83880; 84484; 85025; 85049; 85610; 85730; 93005; 93306; 93458; 96374; 99291; C1874

== ENCOUNTER → 2019-05-02 | Outpatient (CLI) | payer MEDICARE ==
--- NOTE | 2019-05-06 07:37 | PE ---
Nuclear medicine PET/CT HISTORY: Non-Hodgkin's lymphoma, solitary pulmonary nodule, initial Patient received 11.9 mCi F-18 FDG intravenously in delayed scanning was performed from the skull bas e to the mid thighs. Localization and attenuation correction CT scan was performed. Correlation to CT chest 04/21/2019 Neck and chest: The mediastinal and left hilar adenopathy noted on prior CT show associated hypermeta bolic uptake including subcarinal, aorticopulmonary window and right paratracheal nodes, the left hil ar soft tissue mass shows SUV 6.1, mild uptake in the subcarinal location, SUV is 3.9, aorticopulmona ry window node SUV is 3.4. Supraclavicular node on the right is not enlarged but shows associated hyp ermetabolic uptake. Mild uptake noted along the anterior cervical chains. There are coronary artery c alcifications present. No pleural or pericardial effusion. Probable basilar atelectasis or scarring n oted. 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 Proximal descending aorta 3.2 cm. ABDOMEN: Low dense focus within the posterior right lobe of the liver towards the dome of diaphragm i s indeterminate but does not show hyper metabolic uptake. Adrenal glands are normal. No retroperitone al adenopathy. Lower pole the left kidney shows an exophytic probable cyst measuring 5 cm. Uptake milagros ng the colon is likely physiologic. Prostate is enlarged and shows associated calcifications. Muscula r activity about the hips greater on the left and right may be physiologic. Osseous structures are within normal limits. IMPRESSION: Findings compatible with lymphoma.
== END | disposition home or self-care (01) ==
LOC: RADPETMAIN 14:07
PROVIDERS: ATTEND Internal Medicine Critical Care Medicine
DX: R91.1 Solitary pulmonary nodule (principal)
CPT/HCPCS: 78815; A9552

== ENCOUNTER → 2019-05-02 | Outpatient (CLI) | payer MEDICARE ==
[2019-05-02 21:17] LABS: African American GFR (CKD) 89.9 (60.0-200.0); Albumin 3.6 g/dL (3.80-4.90); Albumin/Globulin Ratio 1.44 (1.60-3.17); Anion Gap 13.6 mmol/L (4.00-12.00); Calcium 8.5 mg/dL (8.7-10.3); Carbon Dioxide 23.4 mmol/L (21.6-31.8); Globulin 2.5 g/dL (1.6-3.3); Potassium 3.6 mmol/L (3.5-5.5); Total Bilirubin 1.1 mg/dL (0.2-1.2); Total Protein 6.1 g/dL (6.2-8.2)
== END | disposition home or self-care (01) ==
LOC: LABWHC1 13:26
PROVIDERS: ATTEND Internal Medicine Critical Care Medicine
DX: D86.9 Sarcoidosis, unspecified (principal)
CPT/HCPCS: 36415; 80053; 82164; 82550; 85652

== ENCOUNTER 2023-01-18 09:47 | Day surgery (SDC) | payer MEDICARE ==
[2023-01-17 08:27] VITALS: BMI 26.5
[~2023-01-18 09:47] MED LIST: LACTATED RINGERS 1,000 ML IV SCH; LIDOCAINE 1% (10MG/ML) FOR IV START INTRADERMA PRN
[2023-01-18 11:20] VITALS: TEMP 97.9
[2023-01-18] MEDS ORDERED: LACTATED RINGERS 1,000 ML IV ONE ×2 (11:20)
[2023-01-18] MEDS ORDERED: PROPOFOL 10 MG/ML 20 ML VIAL IV ONE (12:09)
--- NOTE | 2023-01-18 12:27 | P.OP ---
Date of Procedure: 01/18/23 Preoperative Diagnosis: screening colonoscopy Postoperative Diagnosis: diverticulosis Transverse colon polyp Procedure(s) Performed: colonoscopy Anesthesia: MAC Surgeon: Vic Solis Pathology: other (transverse colon polyp) Condition: stable Disposition: PACU Description of Procedure: the patient's placed on the endoscopy table in the lateral position. He received IV sedation. Digital rectal exam was performed. This revealed no abnormalities. The flexible colonoscope was then placed patient anus and passed throughout the entire colon. The ileocecal valve was visualized. There was a large amount liquid stool in the cecum which limited the view of the cecum. The visualized cecum appeared normal. The ascending colon appeared normal. In the transverse colon there was a small sessile polyp removed with the cold forcep. The remainder the transverse colon appeared normal. In the descending colon there is mild diverticular changes. There is also diverticular changes and sigmoid colon the scope was then brought back the rectum and this appeared normal. Scope was withdrawn for patient.
[2023-01-18 13:04] VITALS: BP 110/70; PULSE 77; RESP 18
--- NOTE | 2023-01-25 11:52 | P.GSHP ---
History of Present Illness H&P Date: 01/18/23 Chief Complaint: Screening colonoscopy This a 72-year-old male presents today for screening colonoscopy. Patient denies a significant GI complaints. Past Medical History Past Medical History: Coronary Artery Disease (CAD), Hyperlipidemia, Hypertension Additional Past Medical History / Comment(s): hx colon polyps., states low hgb/anemia History of Any Multi-Drug Resistant Organisms: None Reported Past Surgical History: Heart Catheterization With Stent Additional Past Surgical History / Comment(s): Right knee surgery., colonoscopy Past Anesthesia/Blood Transfusion Reactions: No Reported Reaction Date of Last Stent Placement:: 2018 Past Psychological History: No Psychological Hx Reported Smoking Status: Never smoker Past Alcohol Use History: Rare Past Drug Use History: None Reported - Past Family History Father Family Medical History: Cancer Additional Family Medical History / Comment(s): prostate cancer Medications and Allergies Home Medications Medication Instructions Recorded Confirmed Type Aspirin [Adult Low Dose Aspirin EC] 81 mg PO DAILY #30 tablet. 05/01/19 01/17/23 Rx Evolocumab [Repatha Sureclick] 1 dose SQ Q14D 01/17/23 01/17/23 History Ezetimibe [Zetia] 10 mg PO DAILY 01/17/23 01/17/23 History Losartan [Cozaar] 25 mg PO DAILY 01/17/23 01/17/23 History Metoprolol Tartrate 25 mg PO BID 01/17/23 01/17/23 History Multivitamins, Thera [Multivitamin 1 tab PO DAILY 01/17/23 01/17/23 History (formulary)] Allergies Allergy/AdvReac Type Severity Reaction Status Date / Time No Known Allergies Allergy Verified 01/17/23 08:08 Surgical - Exam Vital Signs Temp Pulse Resp BP Pulse Ox 97.9 F 83 18 110/74 97 01/18/23 11:19 01/18/23 11:19 01/18/23 11:19 01/18/23 11:19 01/18/23 11:19 - General well developed, well nourished, no distress - Eyes PERRL - ENT normal pinna - Neck no masses - Respiratory normal expansion - Cardiovascular Rhythm: regular - Abdomen Abdomen: soft, non tender Assessment and Plan Assessment: We'll perform screening colonoscopy
== END 2023-01-18 13:23 ==
LOC: ORWHC2ENDO 09:47
PROVIDERS: ATTEND Surgery
DX: Z12.11 Encounter for screening for malignant neoplasm of colon (principal); D12.3 Benign neoplasm of transverse colon; K57.30 Diverticulosis of large intestine without perforation or abscess without bleeding; I25.10 Atherosclerotic heart disease of native coronary artery without angina pectoris; I10 Essential (primary) hypertension; E78.5 Hyperlipidemia, unspecified; D64.9 Anemia, unspecified; F10.20 Alcohol dependence, uncomplicated; Z79.82 Long term (current) use of aspirin; Z79.899 Other long term (current) drug therapy
CPT/HCPCS: 88305; 45380; J2704